=== PATIENT | female | born 1950 | race Caucasian/White ===

== ENCOUNTER 2019-08-06 07:43 | Day surgery (SDC) | payer MEDICARE, BC, OTHER ==
[2019-08-06] MEDS ORDERED: Dextrose 5%-Lactated Ringers 1,000 ML IV SCH (08:00)
[2019-08-06] MEDS ORDERED: fentaNYL 100 MCG/2 ML SDV ONE (09:06)
[2019-08-06] MEDS ORDERED: Propofol 200 MG/20 ML SDV ONE (09:06)
[2019-08-06] MEDS ORDERED: Midazolam 1 MG/ML 2 ML SDV ONE (09:06)
[2019-08-06 11:36] VITALS: BP 95/51; PULSE 55
--- NOTE | 2019-08-09 01:22 | OR ---
DATE OF PROCEDURE: 08/06/2019 SURGEON: Raza Wright MD PREOPERATIVE DIAGNOSIS: History of colon polyps. POSTOPERATIVE DIAGNOSIS: History of colon polyps with no recurrent polyp formation on today's exam. OPERATIVE PROCEDURE: Flexible colonoscopy. ANESTHESIA: IV sedation. INDICATION FOR PROCEDURE: A 69-year-old female presenting with history of colon polyps for followup screening colonoscopy. The plan is to proceed with colonoscopy with biopsies and polypectomy as indicated. Potential risks including bleeding and perforation were discussed, and the patient wishes to proceed. DETAILS OF PROCEDURE: The patient was taken to the operating room and placed in a left lateral decubitus position. IV sedation was administered, after which the initial digital rectal exam was performed and was unremarkable. Colonoscope was then passed into the rectum with retroflexion revealing uncomplicated hemorrhoidal columns. The scope was then eventually passed to the level of the cecum. The prep was fairly good with only a small amount of liquid stool being present to that level. No abnormalities were noted. Specifically, there were no areas of colitis or diverticular disease. No other signs of recurrent polyps or other signs of neoplasia. The scope was then withdrawn. The above findings reconfirmed. The procedure concluded. There were no other complications. The patient was taken to the recovery room in satisfactory condition. Due to the history of colon polyps, the next colonoscopy should be planned at 5 years from now. Raza Wright MD /[id number]
== END 2019-08-06 11:35 | disposition home or self-care (01) ==
LOC: JP.SDS 07:43
PROVIDERS: ATTEND Surgery
DX: Z12.11 Encounter for screening for malignant neoplasm of colon (principal); K64.9 Unspecified hemorrhoids; Z86.010 Personal history of colon polyps; Z88.0 Allergy status to penicillin
CPT/HCPCS: G0121; J2250; J2704; J3010; J7042

== ENCOUNTER 2021-01-29 16:48 | Inpatient (IN) | payer MEDICARE, BC, OTHER ==
[2021-01-29] MEDS ORDERED: Sodium Chloride 0.9% 10 ML Syringe FLUSH PRN (17:35)
[2021-01-29] MEDS ORDERED: Ondansetron 4 MG/2 ML SDV IVPUSH ONE (17:37)
[2021-01-29] MEDS ORDERED: fentaNYL 100 MCG/2 ML SDV IVPUSH ONE (17:37)
--- NOTE | 2021-01-29 17:39 | EDM.PDOC ---
<OfficerEyad - Last Filed: 01/29/21 17:37> ED HPI GENERAL MEDICAL PROBLEM - General Chief Complaint: Abdominal Pain Stated Complaint: FROM CLINIC ABD PAIN Time Seen by Provider: 01/29/21 17:32 Source of Information: Reports: Patient, Family, RN Notes Reviewed History Limitations: Reports: No Limitations - History of Present Illness INITIAL COMMENTS - FREE TEXT/NARRATIVE: 70-year-old female presents emergency department day complaint of abdominal pain, she states it started this morning about 10:00 pain will get very intense and relax she did have a noon meal however she had intense nausea and vomiting following the meal she will get waves of nausea and waves of pain rated 8 out of 10 at its peak. Does have a history of tubal ligation for abdominal surgery. No fever did have a bowel movement which appeared smaller than normal dark in color made no effect to the pain. 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 - Infectious Disease History Infectious Disease History: Reports: Chicken Pox, Measles, Mumps - Past Surgical History HEENT Surgical History: Reports: Oral Surgery GI Surgical History: Reports: Colonoscopy Female Surgical History: Reports: Breast Biopsy Social & Family History - Tobacco Use Tobacco Use Status *Q: Never Tobacco User - Caffeine Use Caffeine Use: Reports: Tea ED ROS GENERAL - Review of Systems Review Of Systems: See Below Constitutional: Denies: Fever HEENT: Reports: No Symptoms Respiratory: Reports: No Symptoms Cardiovascular: Reports: No Symptoms GI/Abdominal: Reports: Abdominal Pain, Flatus, Nausea, Vomiting. Denies: Constipation, Diarrhea : Reports: No Symptoms ED EXAM, GI/ABD - Physical Exam Exam: See Below Exam Limited By: No Limitations General Appearance: Alert, WD/WN, No Apparent Distress Respiratory/Chest: No Respiratory Distress, Lungs Clear, Normal Breath Sounds, No Accessory Muscle Use, Chest Non-Tender Cardiovascular: Regular Rate, Rhythm, No Murmur GI/Abdominal Exam: Normal Bowel Sounds, Soft, Tender (Right upper quadrant) Departure - Departure Disposition: Admitted As Inpatient 67 Clinical Impression: Partial obstruction of small intestine Ileitis, regional Qualifiers: Digestive disease complication type: with intestinal obstruction Qualified Code(s): K50.012 - Crohn's disease of small intestine with intestinal obstruction - Discharge Information Referrals: PCP,None [Primary Care Provider] - Forms: ED Department Discharge Sepsis Event Note (ED) - Evaluation Sepsis Screening Result: No Definite Risk <Barber Loving - Last Filed: 01/29/21 20:07> Course - Vital Signs Last Recorded V/S: Last Vital Signs Temp 36.7 C 01/29/21 17:30 Pulse 70 01/29/21 19:03 Resp 16 01/29/21 19:03 BP 125/75 01/29/21 19:03 Pulse Ox 96 01/29/21 19:03 - Orders/Labs/Meds Orders: Active Orders 24 hr Category Date Time Status Peripheral IV Care [RC] . DIRECTED Care 01/29/21 17:36 Active Iopamidol [Isovue-300 (61%)] Med 01/29/21 18:30 Active 86 ml IV . DIRECTED Sodium Chloride 0.9% [Normal Saline] 1,000 ml Med 01/29/21 17:45 Active IV ASDIRECTED Sodium Chloride 0.9% [Normal Saline] 70 ml Med 01/29/21 18:30 Active IV ASDIRECTED Sodium Chloride 0.9% [Saline Flush] Med 01/29/21 17:35 Active 10 ml FLUSH ASDIRECTED PRN Peripheral IV Insertion Adult [OM.PC] Urgent Oth 01/29/21 17:35 Ordered Medication Orders Sodium Chloride (Normal Saline) 1,000 mls @ 500 mls/hr IV ASDIRECTED [facility] Last Admin: 01/29/21 18:00 Dose: 500 mls/hr Documented by: ALIDA Sodium Chloride (Normal Saline) 70 mls @ 3.5 mls/sec IV ASDIRECTED [facility] Last Admin: 01/29/21 18:56 Dose: 3 mls/sec Documented by: MAGDALENA Iopamidol (Iopamidol 612 Mg/Ml 100 Ml Bottle) 86 ml IV . DIRECTED [facility] Last Admin: 01/29/21 18:55 Dose: 86 ml Documented by: MAGDALENA Sodium Chloride (Sodium Chloride 0.9% 10 Ml Syringe) 10 ml FLUSH ASDIRECTED PRN PRN Reason: Keep Vein Open Last Admin: 01/29/21 18:01 Dose: 10 ml Documented by: ALIDA Labs: Laboratory Tests 01/29/21 01/29/21 01/29/21 Range/Units 17:54 17:54 17:54 WBC 8.7 (4.5-11.0) K/uL RBC 4.42 (3.30-5.50) M/uL Hgb 14.0 (12.0-15.0) g/dL Hct 42.3 (36.0-48.0) % MCV 96 (80-98) fL MCH 32 H (27-31) pg MCHC 33 (32-36) % Plt Count 253 (150-400) K/uL Neut % (Auto) 87 H (36-66) % Lymph % (Auto) 8 L (24-44) % [place] % (Auto) 4 (2-6) % Eos % (Auto) 0 L (2-4) % Baso % (Auto) 0 (0-1) % Sodium 143 (140-148) mmol/L Potassium 3.3 L (3.6-5.2) mmol/L Chloride 102 (100-108) mmol/L Carbon Dioxide 33 H (21-32) mmol/L Anion Gap 11.3 (5.0-14.0) mmol/L BUN 17 (7-18) mg/dL Creatinine 0.7 (0.6-1.0) mg/dL Est Cr Clr Drug Dosing 54.48 mL/min Estimated GFR (MDRD) > 60 (>60) Glucose 119 H (74-106) mg/dL Lactic Acid 1.0 (0.4-2.0) mmol/L Calcium 9.8 (8.5-10.1) mg/dL Total Bilirubin 0.5 (0.2-1.0) mg/dL AST 24 (15-37) U/L ALT 22 (12-78) U/L Alkaline Phosphatase 69 (46-116) U/L Troponin I < 0.017 (0.000-0.056) ng/mL C-Reactive Protein (0.0-0.3) mg/dL Total Protein 7.0 (6.4-8.2) g/dL Albumin 3.9 (3.4-5.0) g/dL Globulin 3.1 (2.3-3.5) g/dL Albumin/Globulin Ratio 1.3 (1.2-2.2) Lipase 89 (73-393) U/L Urine Color (YELLOW) Urine Appearance (CLEAR) Urine pH (5.0-8.0) Ur Specific [place] (1.008-1.030) Urine Protein (NEGATIVE) mg/dL Urine Glucose (UA) (NEGATIVE) mg/dL Urine Ketones (NEGATIVE) mg/dL Urine Occult Blood (NEGATIVE) Urine Nitrite (NEGATIVE) Urine Bilirubin (NEGATIVE) Urine Urobilinogen (0.2-1.0) EU/dL Ur Leukocyte Esterase (NEGATIVE) Urine RBC (0-5) Urine WBC (0-5) Ur Epithelial Cells Amorphous Sediment Urine Bacteria Urine Mucus 01/29/21 01/29/21 Range/Units 19:15 19:16 WBC (4.5-11.0) K/uL RBC (3.30-5.50) M/uL Hgb (12.0-15.0) g/dL Hct (36.0-48.0) % MCV (80-98) fL MCH (27-31) pg MCHC (32-36) % Plt Count (150-400) K/uL Neut % (Auto) (36-66) % Lymph % (Auto) (24-44) % [place] % (Auto) (2-6) % Eos % (Auto) (2-4) % Baso % (Auto) (0-1) % Sodium (140-148) mmol/L Potassium (3.6-5.2) mmol/L Chloride (100-108) mmol/L Carbon Dioxide (21-32) mmol/L Anion Gap (5.0-14.0) mmol/L BUN (7-18) mg/dL Creatinine (0.6-1.0) mg/dL Est Cr Clr Drug Dosing mL/min Estimated GFR (MDRD) (>60) Glucose (74-106) mg/dL Lactic Acid (0.4-2.0) mmol/L Calcium (8.5-10.1) mg/dL Total Bilirubin (0.2-1.0) mg/dL AST (15-37) U/L ALT (12-78) U/L Alkaline Phosphatase (46-116) U/L Troponin I (0.000-0.056) ng/mL C-Reactive Protein 0.08 (0.0-0.3) mg/dL Total Protein (6.4-8.2) g/dL Albumin (3.4-5.0) g/dL Globulin (2.3-3.5) g/dL Albumin/Globulin Ratio (1.2-2.2) Lipase (73-393) U/L Urine Color Yellow (YELLOW) Urine Appearance Cloudy A (CLEAR) Urine pH >= 9.0 H (5.0-8.0) Ur Specific [place] 1.015 (1.008-1.030) Urine Protein 30 H (NEGATIVE) mg/dL Urine Glucose (UA) Negative (NEGATIVE) mg/dL Urine Ketones 40 H (NEGATIVE) mg/dL Urine Occult Blood Negative (NEGATIVE) Urine Nitrite Negative (NEGATIVE) Urine Bilirubin Negative (NEGATIVE) Urine Urobilinogen 0.2 (0.2-1.0) EU/dL Ur Leukocyte Esterase Negative (NEGATIVE) Urine RBC 0-5 (0-5) Urine WBC 0-5 (0-5) Ur Epithelial Cells Few Amorphous Sediment Packed Urine Bacteria Few Urine Mucus Few Meds: Medications Generic Name Dose Route Start Last Admin Trade Name Freq PRN Reason Stop Dose Admin Sodium Chloride 1,000 mls @ 500 mls/hr 01/29/21 17:45 01/29/21 18:00 Normal Saline IV 500 mls/hr ASDIRECTED WEN Administration Sodium Chloride 70 mls @ 3.5 mls/sec 01/29/21 18:30 01/29/21 18:56 Normal Saline IV 3 mls/sec ASDIRECTED WEN Administration Iopamidol 86 ml 01/29/21 18:30 01/29/21 18:55 Iopamidol 612 Mg/Ml 100 Ml Bottle IV 86 ml . DIRECTED WEN Administration Sodium Chloride 10 ml 01/29/21 17:35 01/29/21 18:01 Sodium Chloride 0.9% 10 Ml Syringe FLUSH 10 ml ASDIRECTED PRN Administration Keep Vein Open Discontinued Medications Generic Name Dose Route Start Last Admin Trade Name Freq PRN Reason Stop Dose Admin Fentanyl 50 mcg 01/29/21 17:37 01/29/21 17:59 Fentanyl 100 Mcg/2 Ml Sdv IVPUSH 01/29/21 17:38 50 mcg ONETIME ONE Administration Ondansetron HCl 4 mg 01/29/21 17:37 01/29/21 17:59 Ondansetron 4 Mg/2 Ml Sdv IVPUSH 01/29/21 17:38 4 mg ONETIME ONE Administration Sodium Chloride 10 ml 01/29/21 18:29 01/29/21 18:56 Sodium Chloride 0.9% 10 Ml Syringe FLUSH 01/29/21 18:30 10 ml ONETIME ONE Administration - Radiology Interpretation Free Text/Narrative:: He had the CT of the abdomen and pelvis with contrast demonstrating significant wall thickening of the ileum in the mid gut causing upstream obstruction. This is likely an acute ileitis either infectious or inflammatory nature causing an ileus. - Re-Assessments/Exams Free Text/Narrative Re-Assessment/Exam: 01/29/21 20:05 reviewed the labs and imaging of the patient including CT of the abdomen and pelvis with contrast. Appears that she has a partial small bowel obstruction due to acute inflammation in the mid gut involving the small bowel likely due to either infectious or inflammatory ileitis. The patient will need an NG tube placed with decompression of the stomach and bowel rest. I discussed the case with Dr. Simmons who is on-call for the [facility] to arrange for admission of the patient. I also discussed with the patient the findings on the CT and management including the possibility of a surgical consult with Dr. Wright. Both Dr. Simmons and the patient are in agreement with the plan and will arrange for admission. Departure - Departure Time of Disposition: 20:06 Sepsis Event Note (ED) - Focused Exam Vital Signs: Vital Signs Temp Pulse Resp BP Pulse Ox 01/29/21 19:03 70 16 125/75 96 01/29/21 17:30 36.7 C 73 18 138/77 96 01/29/21 17:05 36.7 C 73 18 138/77 96
[2021-01-29] MEDS ORDERED: Sodium Chloride 0.9% 1,000 ML IV SCH (17:45)
[2021-01-29] MEDS ORDERED: Sodium Chloride 0.9% 10 ML Syringe FLUSH ONE (18:29)
[2021-01-29] MEDS ORDERED: Iopamidol 612 MG/ML 100 ML Bottle IV SCH (18:30)
--- NOTE | 2021-01-29 19:46 | CRLCT ---
Examination: CT Abdomen/Pelvis Indication: Right upper quadrant pain Technique: Contiguous axial CT images of the abdomen and pelvis were acquired after uneventful administration of IV contrast. Coronal and sagittal reformations generated and reviewed. Comparison: None available Findings: The multiple proximal dilated small bowel loops which are dilated to the level of the mid abdomen where there is a short segment of small bowel with wall thickening and engorgement of the vasa recta (coronal images 21-24). Distal to that, the bowel is decompressed. No other areas of wall thickening. Normal appendix. Liver is normal in attenuation and contour. Hepatic vasculature is patent. Few subcentimeter low attenuation lesions in liver likely small cysts but technically indeterminate.. No intra or extrahepatic biliary dilation. Normal gallbladder. No hydronephrosis. Kidneys enhance symmetrically without focal lesions. The spleen, pancreas, and adrenal glands are unremarkable. A few prominent mesenteric lymph nodes are noted adjacent to the abnormal small bowel loop. No other adenopathy is noted in the abdomen or pelvis. Small amount of free fluid in the pelvis. Multi fibroid uterus. There is 2.2 x 1.6 cm hyperdense structure at the posterior lateral aspect of the uterus which could be an exophytic partially calcified fibroid or hemorrhagic cyst. No aortic aneurysm. Mesenteric vasculature patent. Iliac veins and IVC unremarkable. Limited images of the lung bases are clear. Minimal dependent atelectasis. Normal heart size. No acute or aggressive osseous abnormalities are noted. Impression: 1. Wall thickening of small bowel loop in the mid abdomen which is causing a relative ileus with dilated small bowel loops proximal to it. This could be due to a infectious enteritis or inflammatory bowel disease. 2. Fibroid uterus. Hyperdense structure at the posterior right margin of the uterus could be an exophytic partially calcified fibroid or possibly a cyst in the ovary. Recommend follow-up ultrasound in 6-8 weeks. Please note that all CT scans at this facility use dose modulation, iterative reconstruction, and/or weight-based dosing when appropriate to reduce radiation dose to as low as reasonably achievable. Dictated by Manpreet Cruz MD @ Jan 29 2021 7:29PM Signed by Dr. Manpreet Cruz @ Jan 29 2021 7:43PM
[2021-01-29] MEDS ORDERED: Lidocaine 2% Viscous Solution 15 ML Cup PO ONE (20:12)
[2021-01-29] MEDS ORDERED: Lidocaine 2% Jelly 10 ML Urojet MUCMEM ONE (20:13)
[2021-01-29] MEDS ORDERED: Morphine 2 MG/ML SYRINGE IVPUSH PRN (21:21)
[2021-01-29] MEDS ORDERED: Ketorolac 30 MG/ML SDV IVPUSH PRN (21:21)
[2021-01-29] MEDS ORDERED: Ondansetron 4 MG/2 ML SDV IV PRN (21:21)
[2021-01-29] MEDS ORDERED: Promethazine 12.5 MG in Sodium Chloride 0.9% 50 ML IV PRN (21:21)
[2021-01-29] MEDS ORDERED: Acetaminophen 650 MG Supp RECTAL PRN (21:32)
--- NOTE | 2021-01-29 21:38 | PCM.HP.2 ---
H&P History of Present Illness - General Date of Service: 01/29/21 Admit Problem/Dx: Admission Diagnosis/Problem Admission Diagnosis/Problem Small bowel obstruction Source of Information: Patient History Limitations: Reports: No Limitations - History of Present Illness Initial Comments - Free Text/Narative: Patient is a previously healthy 70yo female who presented with abdominal pain. It is colicky in nature and worsened after eating. This morning she threw up after lunch. She has had a tubal ligation, but no other abdominal surgeries and is otherwise healthy. In the ER she was found to have a partial SBO with dilated loops of bowel. She was given fentanyl for pain in the ER and has been doing fine since then and her pain improved with an NG tube. Nausea has been co ntrolled with zofran. Pain was 8/10 but is now resolved Onset of Symptoms: Reports: Today, Sudden Duration of Symptoms: Reports: Hour(s): Location: Reports: Abdomen Quality: Reports: Sharp (colicky) Severity: Severe Improves with: Reports: Medication Worsens with: Reports: Eating Associated Symptoms: Reports: Nausea/Vomiting - Related Data Allergies/Adverse Reactions: Allergies Allergy/AdvReac Type Severity Reaction Status Date / Time doxycycline Allergy Other Verified 01/29/21 17:25 Penicillins Allergy Airway Verified 01/29/21 17:25 Tightness Home Medications: Home Meds NK [No Known Home Meds] 05/09/14 [History] Past Medical History HEENT History: Reports: Impaired Vision Gastrointestinal History: Reports: Colon Polyp Genitourinary History: Reports: None 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 Denies: Fever, Chills HEENT: Reports: No Symptoms Pulmonary: Reports: No Symptoms Gastrointestinal: Reports: Abdominal Pain, Distension, Nausea, Vomiting Genitourinary: Reports: No Symptoms Musculoskeletal: Reports: No Symptoms Skin: Reports: No Symptoms Psychiatric: Reports: No Symptoms Neurological: Reports: No Symptoms Hematologic/Lymphatic: Reports: No Symptoms Immunologic: Reports: No Symptoms Exam - Exam Exam: See Below - Vital Signs Vital Signs: Last Vital Signs Temp 36.7 C 01/29/21 17:30 Pulse 73 01/29/21 20:33 Resp 18 01/29/21 20:33 BP 119/70 01/29/21 20:33 Pulse Ox 94 L 01/29/21 20:33 Weight: 57.153 kg - Exam General: Alert, Oriented, 4 HEENT: PERRLA, Hearing Intact, Mucosa Moist & [place], Nares Patent, Normal Nasal Septum, Posterior Pharynx Clear, Conjunctiva Clear, EOMI, EACs Clear, TMs Clear Neck: Supple, Trachea Midline, 2 Lungs: Clear to Auscultation, Normal Respiratory Effort Cardiovascular: Regular Rate, Regular Rhythm GI/Abdominal Exam: Soft, Tender, Abnormal Bowel Sounds. No: Normal Bowel Sounds (Female) Exam: Deferred Rectal (Female) Exam: Deferred Back Exam: Normal Inspection, Full Range of Motion, NT Extremities: Normal Inspection, Normal Range of Motion, Non-Tender, No Pedal Edema, Normal Capillary Refill Skin: Warm, Dry, Intact Neurological: Cranial Nerves Intact, Reflexes Equal Bilateral Neuro Extensive - Mental Status: Alert, Oriented x3, Normal Mood/Affect, Normal Cognition Neuro Extensive - Motor, Sensory, Reflexes: CN II-XII Intact, Normal Gait, Norm al Reflexes Psychiatric: Alert, Normal Affect, Normal Mood - Patient Data Lab Results Last 24 hrs: Laboratory Results - last 24 hr 01/29/21 01/29/21 01/29/21 Range/Units 17:54 17:54 17:54 WBC 8.7 (4.5-11.0) K/uL RBC 4.42 (3.30-5.50) M/uL Hgb 14.0 (12.0-15.0) g/dL Hct 42.3 (36.0-48.0) % MCV 96 (80-98) fL MCH 32 H (27-31) pg MCHC 33 (32-36) % Plt Count 253 (150-400) K/uL Neut % (Auto) 87 H (36-66) % Lymph % (Auto) 8 L (24-44) % [place] % (Auto) 4 (2-6) % Eos % (Auto) 0 L (2-4) % Baso % (Auto) 0 (0-1) % Sodium 143 (140-148) mmol/L Potassium 3.3 L (3.6-5.2) mmol/L Chloride 102 (100-108) mmol/L Carbon Dioxide 33 H (21-32) mmol/L Anion Gap 11.3 (5.0-14.0) mmol/L BUN 17 (7-18) mg/dL Creatinine 0.7 (0.6-1.0) mg/dL Est Cr Clr Drug Dosing 54.48 mL/min Estimated GFR (MDRD) > 60 (>60) Glucose 119 H (74-106) mg/dL Lactic Acid 1.0 (0.4-2.0) mmol/L Calcium 9.8 (8.5-10.1) mg/dL Total Bilirubin 0.5 (0.2-1.0) mg/dL AST 24 (15-37) U/L ALT 22 (12-78) U/L Alkaline Phosphatase 69 (46-116) U/L Troponin I < 0.017 (0.000-0.056) ng/mL C-Reactive Protein (0.0-0.3) mg/dL Total Protein 7.0 (6.4-8.2) g/dL Albumin 3.9 (3.4-5.0) g/dL Globulin 3.1 (2.3-3.5) g/dL Albumin/Globulin Ratio 1.3 (1.2-2.2) Lipase 89 (73-393) U/L Urine Color (YELLOW) Urine Appearance (CLEAR) Urine pH (5.0-8.0) Ur Specific [place] (1.008-1.030) Urine Protein (NEGATIVE) mg/dL Urine Glucose (UA) (NEGATIVE) mg/dL Urine Ketones (NEGATIVE) mg/dL Urine Occult Blood (NEGATIVE) Urine Nitrite (NEGATIVE) Urine Bilirubin (NEGATIVE) Urine Urobilinogen (0.2-1.0) EU/dL Ur Leukocyte Esterase (NEGATIVE) Urine RBC (0-5) Urine WBC (0-5) Ur Epithelial Cells Amorphous Sediment Urine Bacteria Urine Mucus 01/29/21 01/29/21 Range/Units 19:15 19:16 WBC (4.5-11.0) K/uL RBC (3.30-5.50) M/uL Hgb (12.0-15.0) g/dL Hct (36.0-48.0) % MCV (80-98) fL MCH (27-31) pg MCHC (32-36) % Plt Count (150-400) K/uL Neut % (Auto) (36-66) % Lymph % (Auto) (24-44) % [place] % (Auto) (2-6) % Eos % (Auto) (2-4) % Baso % (Auto) (0-1) % Sodium (140-148) mmol/L Potassium (3.6-5.2) mmol/L Chloride (100-108) mmol/L Carbon Dioxide (21-32) mmol/L Anion Gap (5.0-14.0) mmol/L BUN (7-18) mg/dL Creatinine (0.6-1.0) mg/dL Est Cr Clr Drug Dosing mL/min Estimated GFR (MDRD) (>60) Glucose (74-106) mg/dL Lactic Acid (0.4-2.0) mmol/L Calcium (8.5-10.1) mg/dL Total Bilirubin (0.2-1.0) mg/dL AST (15-37) U/L ALT (12-78) U/L Alkaline Phosphatase (46-116) U/L Troponin I (0.000-0.056) ng/mL C-Reactive Protein 0.08 (0.0-0.3) mg/dL Total Protein (6.4-8.2) g/dL Albumin (3.4-5.0) g/dL Globulin (2.3-3.5) g/dL Albumin/Globulin Ratio (1.2-2.2) Lipase (73-393) U/L Urine Color Yellow (YELLOW) Urine Appearance Cloudy A (CLEAR) Urine pH >= 9.0 H (5.0-8.0) Ur Specific [place] 1.015 (1.008-1.030) Urine Protein 30 H (NEGATIVE) mg/dL Urine Glucose (UA) Negative (NEGATIVE) mg/dL Urine Ketones 40 H (NEGATIVE) mg/dL Urine Occult Blood Negative (NEGATIVE) Urine Nitrite Negative (NEGATIVE) Urine Bilirubin Negative (NEGATIVE) Urine Urobilinogen 0.2 (0.2-1.0) EU/dL Ur Leukocyte Esterase Negative (NEGATIVE) Urine RBC 0-5 (0-5) Urine WBC 0-5 (0-5) Ur Epithelial Cells Few Amorphous Sediment Packed Urine Bacteria Few Urine Mucus Few Result Diagrams: 01/29/21 17:54 01/29/21 17:54 Sepsis Event Note - Evaluation Sepsis Screening Result: No Definite Risk - Focused Exam Vital Signs: Vital Signs Temp Pulse Resp BP Pulse Ox 01/29/21 20:33 73 18 119/70 94 L 01/29/21 20:03 68 16 123/64 95 01/29/21 19:33 68 122/65 01/29/21 19:03 70 16 125/75 96 01/29/21 17:30 36.7 C 73 18 138/77 96 01/29/21 17:05 36.7 C 73 18 138/77 96 - Problem List (1) Partial obstruction of small intestine SNOMED Code(s): 056664811 ICD Code: K56.600 - PARTIAL INTESTINAL OBSTRUCTION, UNSPECIFIED TO CAUSE Status: Acute Current Visit: Yes Onset Date: ~01/29/21 Problem Details: NG tube placed, IV maintanence fluids given, pain is controlled in ED, but toradol and tylenol are preferred over opiates. Opiates should not be given unless absolutely necessary due to risk of worsening SBO. Patient should be on bowel rest for 48hrs, unless there is a status change that warrants immediate surgical intervention. Increased pain, change in lab values, or worsening distention despite NG suction. Patient should be NPO for 48hrs Problem List Initiated/Reviewed/Updated: Yes Orders Last 24hrs: Active Orders 24 hr Category Date Time Status Patient Status [ADT] Routine ADT 01/29/21 21:19 Ordered Ambulate [RC] QID Care 01/29/21 21:21 Ordered Oxygen Therapy [RC] PRN Care 01/29/21 21:19 Ordered Oxygen Therapy [RC] PRN Care 01/29/21 21:21 Ordered Peripheral IV Care [RC] . DIRECTED Care 01/29/21 17:36 Active Pulse Oximetry [RC] CONTINUOUS Care 01/29/21 21:21 Ordered VTE/DVT Education [RC] Per Unit Routine Care 01/29/21 21:19 Ordered VTE/DVT Education [RC] Per Unit Routine Care 01/29/21 21:21 Ordered Vital Signs [RC] Q4H Care 01/29/21 21:19 Ordered Vital Signs [RC] Q4H Care 01/29/21 21:21 Ordered Nothing per Oral Now Diet [DIET] Diet 01/29/21 Breakfast Ordered Chest 1V Frontal [CR] Stat Exams 01/29/21 20:11 Ordered C-REACTIVE PROTEIN [CHEM] AM Lab 01/30/21 05:11 Ordered CBC WITH AUTO DIFF [HEME] AM Lab 01/30/21 05:11 Ordered COMPREHENSIVE METABOLIC PN,CMP [CHEM] AM Lab 01/30/21 05:11 Ordered LACTIC ACID [CHEM] AM Lab 01/30/21 05:11 Ordered Acetaminophen [Tylenol] Med 01/29/21 21:32 Ordered 650 mg RECTAL Q6H PRN D5 1/2 NS w/ 20 mEq/L KCl 1,000 ml Med 01/29/21 20:45 Active IV ASDIRECTED Iopamidol [Isovue-300 (61%)] Med 01/29/21 18:30 Active 86 ml IV . DIRECTED Ketorolac [Toradol] Med 01/29/21 21:21 Ordered 30 mg IVPUSH Q6H PRN Morphine Med 01/29/21 21:21 Ordered 2 mg IVPUSH Q2H PRN Ondansetron [Zofran] Med 01/29/21 21:21 Ordered 4 mg IV Q4H PRN Promethazine [Phenergan] 12.5 mg Med 01/29/21 21:21 Ordered Sodium Chloride 0.9% [Normal Saline] 50 ml IV Q6H Sodium Chloride 0.9% [Normal Saline] 1,000 ml Med 01/29/21 17:45 Active IV ASDIRECTED Sodium Chloride 0.9% [Normal Saline] 70 ml Med 01/29/21 18:30 Active IV ASDIRECTED Sodium Chloride 0.9% [Saline Flush] Med 01/29/21 17:35 Active 10 ml FLUSH ASDIRECTED PRN Nasogastric Orogastric Tube Insertion [OM.PC] Routine Oth 01/29/21 20:11 Order ed Peripheral IV Insertion Adult [OM.PC] Urgent Oth 01/29/21 17:35 Ordered Sequential Compression Device [OM.PC] Per Unit Routine Oth 01/29/21 21:22 Ordered Resuscitation Status Routine Resus Stat 01/29/21 21:19 Ordered Medication Orders Acetaminophen (Acetaminophen 650 Mg Supp) 650 mg RECTAL Q6H PRN PRN Reason: Pain Sodium Chloride (Normal Saline) 1,000 mls @ 500 mls/hr IV ASDIRECTED [facility] Last Admin: 01/29/21 18:00 Dose: 500 mls/hr Documented by: ALIDA Sodium Chloride (Normal Saline) 70 mls @ 3.5 mls/sec IV ASDIRECTED [facility] Last Admin: 01/29/21 18:56 Dose: 3 mls/sec Documented by: MAGDALENA Potassium Chloride/Dextrose/Sod Cl (D5 1/2 Ns W/ 20 Meq/L Kcl) 1,000 mls @ 125 mls/hr IV ASDIRECTED [facility] Promethazine HCl 12.5 mg/ (Sodium Chloride) 50.5 mls @ 200 mls/hr IV Q6H PRN PRN Reason: Nausea/Vomiting Iopamidol (Iopamidol 612 Mg/Ml 100 Ml Bottle) 86 ml IV . DIRECTED [facility] Last Admin: 01/29/21 18:55 Dose: 86 ml Documented by: MAGDALENA Ketorolac Tromethamine (Ketorolac 30 Mg/Ml Sdv) 30 mg IVPUSH Q6H PRN PRN Reason: Pain (moderate 4-6) Morphine Sulfate (Morphine 2 Mg/Ml Syringe) 2 mg IVPUSH Q2H PRN PRN Reason: Other Ondansetron HCl (Ondansetron 4 Mg/2 Ml Sdv) 4 mg IV Q4H PRN PRN Reason: Nausea/Vomiting Sodium Chloride (Sodium Chloride 0.9% 10 Ml Syringe) 10 ml FLUSH ASDIRECTED PRN PRN Reason: Keep Vein Open Last Admin: 01/29/21 18:01 Dose: 10 ml Documented by: ALIDA - Mortality Measure Prognosis:: Good
[2021-01-29] MEDS: D5 1/2 NS w/ 20 mEq/L KCl 1,000 ML IV SCH (21:56)
[2021-01-30] MEDS: D5 1/2 NS w/ 20 mEq/L KCl 1,000 ML IV SCH (06:25)
--- NOTE | 2021-01-30 11:17 | PCM.PN ---
- General Info Date of Service: 01/30/21 Subjective Update: No acute events overnight since admission. She does not have any abdominal pain or nausea today. NG tube is something small quantities of a greenish-brown flui d. No fevers. No bowel movement since admission. Procalcitonin level was undetectable. White count remains normal. Functional Status: Reports: Pain Controlled - Review of Systems General: Denies: Fever Gastrointestinal: Denies: Abdominal Pain, Nausea - Patient Data Vitals - Most Recent: Last Vital Signs Temp 36.3 C 01/30/21 11:00 Pulse 64 01/30/21 11:00 Resp 16 01/30/21 11:00 BP 119/69 01/30/21 11:00 Pulse Ox 97 01/30/21 11:00 Weight - Most Recent: 54.613 kg I&O - Last 24 Hours: Intake & Output 01/29/21 01/30/21 01/30/21 22:59 06:59 14:59 Intake Total 1010 Output Total 450 Balance 560 Lab Results Last 24 Hours: Laboratory Results - last 24 hr 01/29/21 01/29/21 01/29/21 Range/Units 17:54 17:54 17:54 WBC 8.7 (4.5-11.0) K/uL RBC 4.42 (3.30-5.50) M/uL Hgb 14.0 (12.0-15.0) g/dL Hct 42.3 (36.0-48.0) % MCV 96 (80-98) fL MCH 32 H (27-31) pg MCHC 33 (32-36) % Plt Count 253 (150-400) K/uL Neut % (Auto) 87 H (36-66) % Lymph % (Auto) 8 L (24-44) % Pratt % (Auto) 4 (2-6) % Eos % (Auto) 0 L (2-4) % Baso % (Auto) 0 (0-1) % Sodium 143 (140-148) mmol/L Potassium 3.3 L (3.6-5.2) mmol/L Chloride 102 (100-108) mmol/L Carbon Dioxide 33 H (21-32) mmol/L Anion Gap 11.3 (5.0-14.0) mmol/L BUN 17 (7-18) mg/dL Creatinine 0.7 (0.6-1.0) mg/dL Est Cr Clr Drug Dosing 54.48 mL/min Estimated GFR (MDRD) > 60 (>60) Glucose 119 H (74-106) mg/dL Lactic Acid 1.0 (0.4-2.0) mmol/L Calcium 9.8 (8.5-10.1) mg/dL Total Bilirubin 0.5 (0.2-1.0) mg/dL AST 24 (15-37) U/L ALT 22 (12-78) U/L Alkaline Phosphatase 69 (46-116) U/L Troponin I < 0.017 (0.000-0.056) ng/mL C-Reactive Protein (0.0-0.3) mg/dL Total Protein 7.0 (6.4-8.2) g/dL Albumin 3.9 (3.4-5.0) g/dL Globulin 3.1 (2.3-3.5) g/dL Albumin/Globulin Ratio 1.3 (1.2-2.2) Lipase 89 (73-393) U/L Urine Color (YELLOW) Urine Appearance (CLEAR) Urine pH (5.0-8.0) Ur Specific [place] (1.008-1.030) Urine Protein (NEGATIVE) mg/dL Urine Glucose (UA) (NEGATIVE) mg/dL Urine Ketones (NEGATIVE) mg/dL Urine Occult Blood (NEGATIVE) Urine Nitrite (NEGATIVE) Urine Bilirubin (NEGATIVE) Urine Urobilinogen (0.2-1.0) EU/dL Ur Leukocyte Esterase (NEGATIVE) Urine RBC (0-5) Urine WBC (0-5) Ur Epithelial Cells Amorphous Sediment Urine Bacteria Urine Mucus 01/29/21 01/29/21 01/30/21 Range/Units 19:15 19:16 04:30 WBC (4.5-11.0) K/uL RBC (3.30-5.50) M/uL Hgb (12.0-15.0) g/dL Hct (36.0-48.0) % MCV (80-98) fL MCH (27-31) pg MCHC (32-36) % Plt Count (150-400) K/uL Neut % (Auto) (36-66) % Lymph % (Auto) (24-44) % Pratt % (Auto) (2-6) % Eos % (Auto) (2-4) % Baso % (Auto) (0-1) % Sodium (140-148) mmol/L Potassium (3.6-5.2) mmol/L Chloride (100-108) mmol/L Carbon Dioxide (21-32) mmol/L Anion Gap (5.0-14.0) mmol/L BUN (7-18) mg/dL Creatinine (0.6-1.0) mg/dL Est Cr Clr Drug Dosing mL/min Estimated GFR (MDRD) (>60) Glucose (74-106) mg/dL Lactic Acid 0.7 (0.4-2.0) mmol/L Calcium (8.5-10.1) mg/dL Total Bilirubin (0.2-1.0) mg/dL AST (15-37) U/L ALT (12-78) U/L Alkaline Phosphatase (46-116) U/L Troponin I (0.000-0.056) ng/mL C-Reactive Protein 0.08 (0.0-0.3) mg/dL Total Protein (6.4-8.2) g/dL Albumin (3.4-5.0) g/dL Globulin (2.3-3.5) g/dL Albumin/Globulin Ratio (1.2-2.2) Lipase (73-393) U/L Urine Color Yellow (YELLOW) Urine Appearance Cloudy A (CLEAR) Urine pH >= 9.0 H (5.0-8.0) Ur Specific [place] 1.015 (1.008-1.030) Urine Protein 30 H (NEGATIVE) mg/dL Urine Glucose (UA) Negative (NEGATIVE) mg/dL Urine Ketones 40 H (NEGATIVE) mg/dL Urine Occult Blood Negative (NEGATIVE) Urine Nitrite Negative (NEGATIVE) Urine Bilirubin Negative (NEGATIVE) Urine Urobilinogen 0.2 (0.2-1.0) EU/dL Ur Leukocyte Esterase Negative (NEGATIVE) Urine RBC 0-5 (0-5) Urine WBC 0-5 (0-5) Ur Epithelial Cells Few Amorphous Sediment Packed Urine Bacteria Few Urine Mucus Few 01/30/21 01/30/21 Range/Units 04:35 04:35 WBC 6.0 (4.5-11.0) K/uL RBC 3.80 (3.30-5.50) M/uL Hgb 11.8 L D (12.0-15.0) g/dL Hct 37.4 (36.0-48.0) % MCV 98 (80-98) fL MCH 31 (27-31) pg MCHC 32 (32-36) % Plt Count 205 (150-400) K/uL Neut % (Auto) 72 H (36-66) % Lymph % (Auto) 18 L (24-44) % Pratt % (Auto) 10 H (2-6) % Eos % (Auto) 1 L (2-4) % Baso % (Auto) 0 (0-1) % Sodium 142 (140-148) mmol/L Potassium 3.5 L (3.6-5.2) mmol/L Chloride 106 (100-108) mmol/L Carbon Dioxide 30 (21-32) mmol/L Anion Gap 9.5 (5.0-14.0) mmol/L BUN 12 (7-18) mg/dL Creatinine 0.6 (0.6-1.0) mg/dL Est Cr Clr Drug Dosing 63.56 mL/min Estimated GFR (MDRD) > 60 (>60) Glucose 151 H (74-106) mg/dL Lactic Acid (0.4-2.0) mmol/L Calcium 8.2 L D (8.5-10.1) mg/dL Total Bilirubin 0.5 (0.2-1.0) mg/dL AST 15 (15-37) U/L ALT 15 (12-78) U/L Alkaline Phosphatase 51 (46-116) U/L Troponin I (0.000-0.056) ng/mL C-Reactive Protein 0.14 (0.0-0.3) mg/dL Total Protein 5.3 L (6.4-8.2) g/dL Albumin 2.8 L (3.4-5.0) g/dL Globulin 2.5 (2.3-3.5) g/dL Albumin/Globulin Ratio 1.1 L (1.2-2.2) Lipase (73-393) U/L Urine Color (YELLOW) Urine Appearance (CLEAR) Urine pH (5.0-8.0) Ur Specific [place] (1.008-1.030) Urine Protein (NEGATIVE) mg/dL Urine Glucose (UA) (NEGATIVE) mg/dL Urine Ketones (NEGATIVE) mg/dL Urine Occult Blood (NEGATIVE) Urine Nitrite (NEGATIVE) Urine Bilirubin (NEGATIVE) Urine Urobilinogen (0.2-1.0) EU/dL Ur Leukocyte Esterase (NEGATIVE) Urine RBC (0-5) Urine WBC (0-5) Ur Epithelial Cells Amorphous Sediment Urine Bacteria Urine Mucus Med Orders - Current: Current Medications Acetaminophen (Acetaminophen 650 Mg Supp) 650 mg RECTAL Q6H PRN PRN Reason: Pain Promethazine HCl 12.5 mg/ (Sodium Chloride) 50.5 mls @ 200 mls/hr IV Q6H PRN PRN Reason: Nausea/Vomiting Potassium Chloride 20 meq/Lidocaine HCl 2 ml/ Sodium Chloride 112 mls @ 50 mls/hr IV Q2H [facility] Stop: 01/30/21 13:59 Iopamidol (Iopamidol 612 Mg/Ml 100 Ml Bottle) 86 ml IV . DIRECTED [facility] Last Admin: 01/29/21 18:55 Dose: 86 ml Documented by: Ketorolac Tromethamine (Ketorolac 30 Mg/Ml Sdv) 30 mg IVPUSH Q6H PRN PRN Reason: Pain (moderate 4-6) Morphine Sulfate (Morphine 2 Mg/Ml Syringe) 2 mg IVPUSH Q2H PRN PRN Reason: Other Ondansetron HCl (Ondansetron 4 Mg/2 Ml Sdv) 4 mg IV Q4H PRN PRN Reason: Nausea/Vomiting Sodium Chloride (Sodium Chloride 0.9% 10 Ml Syringe) 10 ml FLUSH ASDIRECTED PRN PRN Reason: Keep Vein Open Last Admin: 01/29/21 18:01 Dose: 10 ml Documented by: Discontinued Medications Fentanyl (Fentanyl 100 Mcg/2 Ml Sdv) 50 mcg IVPUSH ONETIME ONE Stop: 01/29/21 17:38 Last Admin: 01/29/21 17:59 Dose: 50 mcg Documented by: Sodium Chloride (Normal Saline) 1,000 mls @ 500 mls/hr IV ASDIRECTED [facility] Last Admin: 01/29/21 18:00 Dose: 500 mls/hr Documented by: Sodium Chloride (Normal Saline) 70 mls @ 3.5 mls/sec IV ASDIRECTED [facility] Last Admin: 01/29/21 18:56 Dose: 3 mls/sec Documented by: Potassium Chloride/Dextrose/Sod Cl (D5 1/2 Ns W/ 20 Meq/L Kcl) 1,000 mls @ 125 mls/hr IV ASDIRECTED [facility] Last Admin: 01/30/21 06:25 Dose: 125 mls/hr Documented by: Lidocaine HCl (Lidocaine 2% Viscous Solution 15 Ml Cup) 15 ml PO ONETIME ONE Stop: 01/29/21 20:13 Lidocaine HCl (Lidocaine 2% Jelly 10 Ml Urojet) 10 ml MUCMEM ONETIME ONE Stop: 01/29/21 20:14 Last Admin: 01/29/21 20:38 Dose: 10 ml Documented by: Ondansetron HCl (Ondansetron 4 Mg/2 Ml Sdv) 4 mg IVPUSH ONETIME ONE Stop: 01/29/21 17:38 Last Admin: 01/29/21 17:59 Dose: 4 mg Documented by: Sodium Chloride (Sodium Chloride 0.9% 10 Ml Syringe) 10 ml FLUSH ONETIME ONE Stop: 01/29/21 18:30 Last Admin: 01/29/21 18:56 Dose: 10 ml Documented by: - Exam Quality Assessment: No: Supplemental Oxygen General: Alert, Oriented, Cooperative, No Acute Distress HEENT: Other (NG tube in place) Lungs: Normal Respiratory Effort GI/Abdominal Exam: Normal Bowel Sounds, Soft, No Distention Extremities: No Pedal Edema Skin: Warm, Dry Psy/Mental Status: Alert, Normal Affect - Patient Data Lab Results Last 24 hrs: Laboratory Results - last 24 hr 01/29/21 01/29/21 01/29/21 Range/Units 17:54 17:54 17:54 WBC 8.7 (4.5-11.0) K/uL RBC 4.42 (3.30-5.50) M/uL Hgb 14.0 (12.0-15.0) g/dL Hct 42.3 (36.0-48.0) % MCV 96 (80-98) fL MCH 32 H (27-31) pg MCHC 33 (32-36) % Plt Count 253 (150-400) K/uL Neut % (Auto) 87 H (36-66) % Lymph % (Auto) 8 L (24-44) % Pratt % (Auto) 4 (2-6) % Eos % (Auto) 0 L (2-4) % Baso % (Auto) 0 (0-1) % Sodium 143 (140-148) mmol/L Potassium 3.3 L (3.6-5.2) mmol/L Chloride 102 (100-108) mmol/L Carbon Dioxide 33 H (21-32) mmol/L Anion Gap 11.3 (5.0-14.0) mmol/L BUN 17 (7-18) mg/dL Creatinine 0.7 (0.6-1.0) mg/dL Est Cr Clr Drug Dosing 54.48 mL/min Estimated GFR (MDRD) > 60 (>60) Glucose 119 H (74-106) mg/dL Lactic Acid 1.0 (0.4-2.0) mmol/L Calcium 9.8 (8.5-10.1) mg/dL Total Bilirubin 0.5 (0.2-1.0) mg/dL AST 24 (15-37) U/L ALT 22 (12-78) U/L Alkaline Phosphatase 69 (46-116) U/L Troponin I < 0.017 (0.000-0.056) ng/mL C-Reactive Protein (0.0-0.3) mg/dL Total Protein 7.0 (6.4-8.2) g/dL Albumin 3.9 (3.4-5.0) g/dL Globulin 3.1 (2.3-3.5) g/dL Albumin/Globulin Ratio 1.3 (1.2-2.2) Lipase 89 (73-393) U/L Urine Color (YELLOW) Urine Appearance (CLEAR) Urine pH (5.0-8.0) Ur Specific [place] (1.008-1.030) Urine Protein (NEGATIVE) mg/dL Urine Glucose (UA) (NEGATIVE) mg/dL Urine Ketones (NEGATIVE) mg/dL Urine Occult Blood (NEGATIVE) Urine Nitrite (NEGATIVE) Urine Bilirubin (NEGATIVE) Urine Urobilinogen (0.2-1.0) EU/dL Ur Leukocyte Esterase (NEGATIVE) Urine RBC (0-5) Urine WBC (0-5) Ur Epithelial Cells Amorphous Sediment Urine Bacteria Urine Mucus 01/29/21 01/29/21 01/30/21 Range/Units 19:15 19:16 04:30 WBC (4.5-11.0) K/uL RBC (3.30-5.50) M/uL Hgb (12.0-15.0) g/dL Hct (36.0-48.0) % MCV (80-98) fL MCH (27-31) pg MCHC (32-36) % Plt Count (150-400) K/uL Neut % (Auto) (36-66) % Lymph % (Auto) (24-44) % Pratt % (Auto) (2-6) % Eos % (Auto) (2-4) % Baso % (Auto) (0-1) % Sodium (140-148) mmol/L Potassium (3.6-5.2) mmol/L Chloride (100-108) mmol/L Carbon Dioxide (21-32) mmol/L Anion Gap (5.0-14.0) mmol/L BUN (7-18) mg/dL Creatinine (0.6-1.0) mg/dL Est Cr Clr Drug Dosing mL/min Estimated GFR (MDRD) (>60) Glucose (74-106) mg/dL Lactic Acid 0.7 (0.4-2.0) mmol/L Calcium (8.5-10.1) mg/dL Total Bilirubin (0.2-1.0) mg/dL AST (15-37) U/L ALT (12-78) U/L Alkaline Phosphatase (46-116) U/L Troponin I (0.000-0.056) ng/mL C-Reactive Protein 0.08 (0.0-0.3) mg/dL Total Protein (6.4-8.2) g/dL Albumin (3.4-5.0) g/dL Globulin (2.3-3.5) g/dL Albumin/Globulin Ratio (1.2-2.2) Lipase (73-393) U/L Urine Color Yellow (YELLOW) Urine Appearance Cloudy A (CLEAR) Urine pH >= 9.0 H (5.0-8.0) Ur Specific [place] 1.015 (1.008-1.030) Urine Protein 30 H (NEGATIVE) mg/dL Urine Glucose (UA) Negative (NEGATIVE) mg/dL Urine Ketones 40 H (NEGATIVE) mg/dL Urine Occult Blood Negative (NEGATIVE) Urine Nitrite Negative (NEGATIVE) Urine Bilirubin Negative (NEGATIVE) Urine Urobilinogen 0.2 (0.2-1.0) EU/dL Ur Leukocyte Esterase Negative (NEGATIVE) Urine RBC 0-5 (0-5) Urine WBC 0-5 (0-5) Ur Epithelial Cells Few Amorphous Sediment Packed Urine Bacteria Few Urine Mucus Few 01/30/21 01/30/21 Range/Units 04:35 04:35 WBC 6.0 (4.5-11.0) K/uL RBC 3.80 (3.30-5.50) M/uL Hgb 11.8 L D (12.0-15.0) g/dL Hct 37.4 (36.0-48.0) % MCV 98 (80-98) fL MCH 31 (27-31) pg MCHC 32 (32-36) % Plt Count 205 (150-400) K/uL Neut % (Auto) 72 H (36-66) % Lymph % (Auto) 18 L (24-44) % Pratt % (Auto) 10 H (2-6) % Eos % (Auto) 1 L (2-4) % Baso % (Auto) 0 (0-1) % Sodium 142 (140-148) mmol/L Potassium 3.5 L (3.6-5.2) mmol/L Chloride 106 (100-108) mmol/L Carbon Dioxide 30 (21-32) mmol/L Anion Gap 9.5 (5.0-14.0) mmol/L BUN 12 (7-18) mg/dL Creatinine 0.6 (0.6-1.0) mg/dL Est Cr Clr Drug Dosing 63.56 mL/min Estimated GFR (MDRD) > 60 (>60) Glucose 151 H (74-106) mg/dL Lactic Acid (0.4-2.0) mmol/L Calcium 8.2 L D (8.5-10.1) mg/dL Total Bilirubin 0.5 (0.2-1.0) mg/dL AST 15 (15-37) U/L ALT 15 (12-78) U/L Alkaline Phosphatase 51 (46-116) U/L Troponin I (0.000-0.056) ng/mL C-Reactive Protein 0.14 (0.0-0.3) mg/dL Total Protein 5.3 L (6.4-8.2) g/dL Albumin 2.8 L (3.4-5.0) g/dL Globulin 2.5 (2.3-3.5) g/dL Albumin/Globulin Ratio 1.1 L (1.2-2.2) Lipase (73-393) U/L Urine Color (YELLOW) Urine Appearance (CLEAR) Urine pH (5.0-8.0) Ur Specific [place] (1.008-1.030) Urine Protein (NEGATIVE) mg/dL Urine Glucose (UA) (NEGATIVE) mg/dL Urine Ketones (NEGATIVE) mg/dL Urine Occult Blood (NEGATIVE) Urine Nitrite (NEGATIVE) Urine Bilirubin (NEGATIVE) Urine Urobilinogen (0.2-1.0) EU/dL Ur Leukocyte Esterase (NEGATIVE) Urine RBC (0-5) Urine WBC (0-5) Ur Epithelial Cells Amorphous Sediment Urine Bacteria Urine Mucus Result Diagrams: 01/30/21 04:35 01/30/21 04:35 Sepsis Event Note - Evaluation Sepsis Screening Result: No Definite Risk - Focused Exam Vital Signs: Vital Signs Temp Pulse Resp BP Pulse Ox 01/30/21 11:00 36.3 C 64 16 119/69 97 01/30/21 07:26 99 01/30/21 07:00 36.0 C L 66 16 96 01/30/21 02:47 36.2 C 62 15 96/57 L 99 01/30/21 01:38 98 01/29/21 23:30 91 L - Problem List Review Problem List Initiated/Reviewed/Updated: Yes - My Orders Last 24 Hours: My Active Orders 01/30/21 10:00 Potassium Chloride 20 meq Lidocaine 1% [Xylocaine 1%] 2 ml Sodium Chloride 0.9% [Normal Saline] 100 ml IV Q2H 01/30/21 11:15 PROCALCITONIN [CHEM] Routine 01/30/21 11:30 D5 1/2 NS w/ 20 mEq/L KCl 1,000 ml IV ASDIRECTED - Plan Plan:: ASSESSMENT AND PLAN - Ileus/partial small bowel obstruction-CT noted small area of inflammation in the mid abdomen involving the small intestine. Differential included infectious versus inflammatory. Procalcitonin undetectable and white count normal. Could be viral. No personal or family history of inflammatory bowel disease. Clinically improving. -Continue NG tube for now, remove when output is minimal -Symptomatic management of pain and nausea -Flat and upright in the morning -Consider surgical consultation if worsening, no indication currently Hypokalemia-mild, improving with supplementation. -40 mEq IV today Maintenance issues - - DVT prophylaxis -mechanical - GI prophylaxis -PPI - Nutrition -nothing by mouth Disposition -I would anticipate discharge home after the hospital stay Fito Sifuentes M.D.
[2021-01-30] MEDS ORDERED: D5 1/2 NS w/ 20 mEq/L KCl 1,000 ML IV SCH (11:30)
[2021-01-30] MEDS: Potassium Chloride 20 MEQ, Lidocaine 1% 2 ML in Sodium Chloride 0.9% 100 ML IV SCH ×2 (11:44→14:57)
[2021-01-31 07:33] VITALS: PULSE 63
[2021-01-31 11:03] VITALS: BP 150/85
--- NOTE | 2021-01-31 13:18 | PCM.DCSUM1 ---
Discharge Summary - Hospital Course Brief History: Healthy 70-year-old female who presented with acute onset of abdominal pain with nausea and vomiting. She was admitted for management of a partial small bowel obstruction with mild small bowel inflammation in a short segment of the small intestine. Diagnosis: Stroke: No - Discharge Data Discharge Date: 01/31/21 Discharge Disposition: Home, Self-Care 01 Condition: Good - Referral to Home Health Primary Care Physician: PCP None - Discharge Diagnosis/Problem(s) (1) Partial obstruction of small intestine SNOMED Code(s): 074253538 ICD Code: K56.600 - PARTIAL INTESTINAL OBSTRUCTION, UNSPECIFIED TO CAUSE Status: Acute Current Visit: Yes Onset Date: ~01/29/21 - Patient Summary/Data Hospital Course: Becky presented to the emergency room with acute onset of abdominal pain with nausea and vomiting. Work-up in the emergency room revealed normal laboratory studies including a normal white blood cell count and normal CRP. Vital signs were stable and there was no fever. A CT scan of the abdomen and pelvis showed a short segment of small intestine had inflammation in the mid abdomen. This created a partial obstruction/ileus. An NG tube was placed in the emergency room and she was admitted for hydration, symptom management and additional monitoring. By the morning after admission her abdominal pain had resolved. Her NG tube was not producing any liquid. We performed a clamping trial and there was no buildup of fluid during the clamping trial. The NG tube was removed and she was started on clear liquids. She tolerated these well and then was advanced to full liquids. She tolerated these well with no pain or nausea. She feels well enough to go home at this time and I believe she is safe for discharge and outpatient management. The exact cause for the short-lived obstruction is not entirely clear. Laboratory studies were normal. She never had any fevers. She never had diarrhea. Focal viral infection/enteritis versus temporary inflammation seems most likely. Inflammatory bowel disease seems very unlikely. She will seek additional evaluation if she has recurrent symptoms. - Patient Instructions Diet: GI Soft/Low Residue/Low Fiber Activity: As Tolerated Driving: May Drive Today Showering/Bathing: May Shower Notify Provider of: Fever, Increased Pain, Nausea and/or Vomiting Other/Special Instructions: 1. You were in the hospital for management of a partial small bowel obstruction caused by inflammation and a small area of your small intestine. The exact cause for this area of inflammation and partial obstruction is not entirely clear but has resolved quickly without any specific intervention. This may have been due to a localized viral infection or temporary inflammation. I recommend that you maintain a liquid to soft diet for the next several days before slowly reintroducing your normal foods. If you develop a sudden increase in abdominal pain, have nausea or vomiting or if you develop a fever you should seek medical attention. No specific follow-up is necessary as long as you continue to feel better. - Discharge Plan *PRESCRIPTION DRUG MONITORING PROGRAM REVIEWED*: Not Applicable *COPY OF PRESCRIPTION DRUG MONITORING REPORT IN PATIENT HILLARY: Not Applicable Home Medications: Home Meds NK [No Known Home Meds] 05/09/14 [History] Oxygen Therapy Mode: Room Air Patient Handouts: Bowel Obstruction, [id number] Referrals: PCP,None [Primary Care Provider] - (Follow-up as needed if your symptoms do not continue to get better or if they get worse) - Discharge Summary/Plan Comment DC Time >30 min.: No - Patient Data Vitals - Most Recent: Last Vital Signs Temp 36.4 C 01/31/21 11:00 Pulse 63 01/31/21 11:00 Resp 16 01/31/21 11:00 BP 150/85 H 01/31/21 11:00 Pulse Ox 96 01/31/21 11:00 Weight - Most Recent: 54.613 kg I&O - Last 24 hours: Intake & Output 01/30/21 01/31/21 01/31/21 21:59 06:59 14:59 Intake Total 840 Output Total 300 Balance 540 Med Orders - Current: Current Medications Acetaminophen (Acetaminophen 650 Mg Supp) 650 mg RECTAL Q6H PRN PRN Reason: Pain Promethazine HCl 12.5 mg/ (Sodium Chloride) 50.5 mls @ 200 mls/hr IV Q6H PRN PRN Reason: Nausea/Vomiting Iopamidol (Iopamidol 612 Mg/Ml 100 Ml Bottle) 86 ml IV . DIRECTED [facility] Last Admin: 01/29/21 18:55 Dose: 86 ml Documented by: Ketorolac Tromethamine (Ketorolac 30 Mg/Ml Sdv) 30 mg IVPUSH Q6H PRN PRN Reason: Pain (moderate 4-6) Morphine Sulfate (Morphine 2 Mg/Ml Syringe) 2 mg IVPUSH Q2H PRN PRN Reason: Other Ondansetron HCl (Ondansetron 4 Mg/2 Ml Sdv) 4 mg IV Q4H PRN PRN Reason: Nausea/Vomiting Sodium Chloride (Sodium Chloride 0.9% 10 Ml Syringe) 10 ml FLUSH ASDIRECTED PRN PRN Reason: Keep Vein Open Last Admin: 01/29/21 18:01 Dose: 10 ml Documented by: Discontinued Medications Fentanyl (Fentanyl 100 Mcg/2 Ml Sdv) 50 mcg IVPUSH ONETIME ONE Stop: 01/29/21 17:38 Last Admin: 01/29/21 17:59 Dose: 50 mcg Documented by: Sodium Chloride (Normal Saline) 1,000 mls @ 500 mls/hr IV ASDIRECTED [facility] Last Admin: 01/29/21 18:00 Dose: 500 mls/hr Documented by: Sodium Chloride (Normal Saline) 70 mls @ 3.5 mls/sec IV ASDIRECTED [facility] Last Admin: 01/29/21 18:56 Dose: 3 mls/sec Documented by: Potassium Chloride/Dextrose/Sod Cl (D5 1/2 Ns W/ 20 Meq/L Kcl) 1,000 mls @ 125 mls/hr IV ASDIRECTED [facility] Last Admin: 01/30/21 06:25 Dose: 125 mls/hr Documented by: Potassium Chloride 20 meq/Lidocaine HCl 2 ml/ Sodium Chloride 112 mls @ 50 mls/hr IV Q2H [facility] Stop: 01/30/21 13:59 Last Admin: 01/30/21 14:57 Dose: 50 mls/hr Documented by: Potassium Chloride/Dextrose/Sod Cl (D5 1/2 Ns W/ 20 Meq/L Kcl) 1,000 mls @ 75 mls/hr IV ASDIRECTED [facility] Lidocaine HCl (Lidocaine 2% Viscous Solution 15 Ml Cup) 15 ml PO ONETIME ONE Stop: 01/29/21 20:13 Lidocaine HCl (Lidocaine 2% Jelly 10 Ml Urojet) 10 ml MUCMEM ONETIME ONE Stop: 01/29/21 20:14 Last Admin: 01/29/21 20:38 Dose: 10 ml Documented by: Ondansetron HCl (Ondansetron 4 Mg/2 Ml Sdv) 4 mg IVPUSH ONETIME ONE Stop: 01/29/21 17:38 Last Admin: 01/29/21 17:59 Dose: 4 mg Documented by: Sodium Chloride (Sodium Chloride 0.9% 10 Ml Syringe) 10 ml FLUSH ONETIME ONE Stop: 01/29/21 18:30 Last Admin: 01/29/21 18:56 Dose: 10 ml Documented by:
--- NOTE | 2021-02-01 09:34 | CR ---
CHEST: Portable 01/29/2021 at 9:32 PM CLINICAL HISTORY:NG tube placement COMPARISON:None FINDINGS: There is an NG tube. The tip is near the pylorus. The heart size, pulmonary vascularity and hilar structures are normal. No infiltrate effusion or pneumothorax is seen. There are atherosclerotic changes in the aorta.. IMPRESSION: No acute cardiopulmonary process. NG tube in distal stomach Abdomen 2V AP Flat Upright CLINICAL HISTORY: Follow-up obstruction FINDINGS: No free air is identified. There is gas and feces are the colon. There are scattered air-filled bowel loops of small bowel in a nonspecific pattern. There are a few air-fluid levels in the mid abdomen. No stones are seen. IMPRESSION: Nonspecific intestinal gas pattern
== END 2021-01-31 13:54 | disposition home or self-care (01) | DRG 387 ==
LOC: JP.ED 16:48 → JP.MS 21:19
PROVIDERS: ADMIT Family Medicine; ATTEND Internal Medicine
DX: K50.012 Crohn's disease of small intestine with intestinal obstruction (principal); E87.6 Hypokalemia; Z86.010 Personal history of colon polyps; H54.7 Unspecified visual loss; Z88.1 Allergy status to other antibiotic agents; Z88.0 Allergy status to penicillin
CPT/HCPCS: 36415; 43752; 71045; 71045-26; 74019; 74019-26; 74177; 80053; 81001; 83605; 83690; 84145; 84484; 85025; 86140; 94762; 96374; 96375; 99285-25; J2405; J3010; J3480; J7030; Q9967

== ENCOUNTER 2021-06-26 00:53 | Emergency (ER) | payer MEDICARE, BC, OTHER ==
[2021-06-26] MEDS ORDERED: Alum Hydrox/Mag Hydrox/Simeth 15 ML, Lidocaine 2% 15 ML PO ONE ×2 (01:28)
[2021-06-26] MEDS ORDERED: Ondansetron 4 MG/2 ML SDV IVPUSH ONE (01:44)
[2021-06-26] MEDS ORDERED: Sodium Chloride 0.9% 10 ML Syringe FLUSH PRN (01:44)
[2021-06-26] MEDS ORDERED: HYDROmorphone 0.5 MG/0.5 ML Syringe IVPUSH ONE (01:45)
[2021-06-26] MEDS ORDERED: diphenhydrAMINE 50 MG/ML SDV IVPUSH ONE (01:47)
--- NOTE | 2021-06-26 01:54 | EDM.PDOC ---
ED HPI GENERAL MEDICAL PROBLEM - General Chief Complaint: Chest Pain Stated Complaint: UPPER ABD PAIN Time Seen by Provider: 06/26/21 01:40 Source of Information: Reports: Patient, Old Records, RN History Limitations: Reports: No Limitations - History of Present Illness INITIAL COMMENTS - FREE TEXT/NARRATIVE: 71 yo female here with epigastric pain associated with nausea and vomiting that began about 6 hrs before arrival. Had vomited x 2 before arrival and then again after arrival. No hematemesis. Sx's not relieved with eating. No hx of the same. [place] at first like she might just be hungry. No hx of gallstones or pancreas issues. Pain does not radiate. Does have a pHx of a partial SBO. Onset: Gradual Onset Date: 06/25/21 Duration: Hour(s):, Getting Worse Location: Reports: Abdomen Quality: Reports: Ache Severity: Moderate Improves with: Reports: None Worsens with: Reports: Other (time) Context: Reports: Other (See HPI) Associated Symptoms: Reports: Diaphoresis, Nausea/Vomiting. Denies: Fever/Chills Treatments SILK SNAPPER: Reports: Other (see below) (none) epigastric Pain Score (Numeric/FACES): 7 - Related Data Allergies Allergy/AdvReac Type Severity Reaction Status Date / Time doxycycline Allergy Other Verified 06/26/21 01:06 Penicillins Allergy Airway Verified 06/26/21 01:06 Tightness Home Meds: Home Meds NK [No Known Home Meds] 05/09/14 [History] Past Medical History HEENT History: Reports: Impaired Vision Cardiovascular History: Reports: None Respiratory History: Reports: None Gastrointestinal History: Reports: Colon Polyp, Other (See Below) Other Gastrointestinal History: small bowel obstr Genitourinary History: Reports: None 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 , Musculoskeletal History: Reports: None Neurological History: Reports: None Psychiatric History: Reports: None Endocrine/Metabolic History: Reports: None Hematologic History: Reports: None Immunologic History: Reports: None Oncologic (Cancer) History: Reports: None Dermatologic History: Reports: None - Infectious Disease History Infectious Disease History: Reports: Chicken Pox, Measles, Mumps - Past Surgical History HEENT Surgical History: Reports: Oral Surgery GI Surgical History: Reports: Colonoscopy Female Surgical History: Reports: Breast Biopsy Dermatological Surgical History: Reports: None Social & Family History - Family History Family Medical History: No Pertinent Family History - Tobacco Use Tobacco Use Status *Q: Never Tobacco User - Caffeine Use Caffeine Use: Reports: Tea - Recreational Drug Use Recreational Drug Use: No ED ROS GENERAL - Review of Systems Review Of Systems: See Below Constitutional: Reports: No Symptoms HEENT: Reports: No Symptoms Respiratory: Reports: No Symptoms Cardiovascular: Reports: No Symptoms GI/Abdominal: Reports: Abdominal Pain, Nausea, Vomiting. Denies: Black Stool, Constipation, Diarrhea, Distension, Hematemesis, Hematochezia, Melena Skin: Reports: Diaphoresis (at times) Neurological: Reports: No Symptoms ED EXAM, GI/ABD - Physical Exam Exam: See Below Exam Limited By: No Limitations General Appearance: Alert, WD/WN, No Apparent Distress Eyes: Bilateral: Normal Appearance Ears: Normal External Exam, Normal Canal, Hearing Grossly Normal Nose: Normal Inspection, No Blood Throat/Mouth: Normal Inspection, Normal Lips, Normal Oropharynx, Normal Voice, No Airway Compromise Head: Atraumatic, Normocephalic Neck: Normal Inspection Respiratory/Chest: No Respiratory Distress, Lungs Clear, Normal Breath Sounds, No Accessory Muscle Use Cardiovascular: Regular Rate, Rhythm, No Edema GI/Abdominal Exam: Normal Bowel Sounds, Soft, No Distention, Tender (epigastrium), Other (no dullness to percussion). No: Non-Tender, Distended, Guarding, Rigid, Rebound Back Exam: Normal Inspection. No: CVA Tenderness (R), CVA Tenderness (L) Extremities: Normal Inspection, Normal Range of Motion, Non-Tender, No Pedal Edema. No: Pedal Edema Neurological: Alert, Oriented, CN II-XII Intact, Normal Cognition, No Motor/Sensory Deficits Psychiatric: Normal Affect, Normal Mood Skin Exam: Warm, Dry, Intact, Normal Color, No Rash #1 Interpretation EKG Date: 06/26/21 Time: 01:00 Rhythm: NSR Rate (Beats/Min): 75 [place]: LAD-Left [place] Deviation P-Wave: Present QRS: Normal ST-T: Normal QT: Normal Comparison: NA - No Prior EKG Course - Vital Signs Last Recorded V/S: Last Vital Signs Temp 36.7 C 06/26/21 01:09 Pulse 64 06/26/21 03:37 Resp 8 L 06/26/21 03:37 BP 112/63 06/26/21 03:37 Pulse Ox 99 06/26/21 03:37 - Orders/Labs/Meds Orders: Active Orders 24 hr Category Date Time Status Cardiac Monitoring [RC] .As Directed Care 06/26/21 01:03 Active EKG Documentation Completion [RC] ASDIRECTED Care 06/26/21 01:03 Active Lactated Ringers [Ringers, Lactated] 1,000 ml Med 06/26/21 02:48 Active IV BOLUS Sodium Chloride 0.9% [Saline Flush] Med 06/26/21 01:44 Active 10 ml FLUSH ASDIRECTED PRN Saline Lock Insert [OM.PC] Routine Oth 06/26/21 01:44 Ordered EKG 12 Lead [EK] Routine Ther 06/26/21 01:02 Ordered Medication Orders Lactated Ringer's (Ringers, Lactated) 1,000 mls @ 1,000 mls/hr IV BOLUS ONE Stop: 06/26/21 03:47 Last Admin: 06/26/21 03:04 Dose: 1,000 mls/hr Documented by: TAMERA Sodium Chloride (Sodium Chloride 0.9% 10 Ml Syringe) 10 ml FLUSH ASDIRECTED PRN PRN Reason: Keep Vein Open Last Admin: 06/26/21 02:02 Dose: 10 ml Documented by: TAMERA Labs: Laboratory Tests 06/26/21 06/26/21 Range/Units 01:56 01:56 WBC 11.2 H (4.5-11.0) K/uL RBC 4.50 (3.30-5.50) M/uL Hgb 13.9 (12.0-15.0) g/dL Hct 41.8 (36.0-48.0) % MCV 93 (80-98) fL MCH 31 (27-31) pg MCHC 33 (32-36) % Plt Count 240 (150-400) K/uL Sodium 140 (140-148) mmol/L Potassium 4.5 (3.6-5.2) mmol/L Chloride 99 L (100-108) mmol/L Carbon Dioxide 33 H (21-32) mmol/L Anion Gap 12.5 (5.0-14.0) mmol/L BUN 21 H (7-18) mg/dL Creatinine 0.6 (0.6-1.0) mg/dL Est Cr Clr Drug Dosing 65.84 mL/min Estimated GFR (MDRD) > 60 (>60) Glucose 140 H (74-106) mg/dL Calcium 9.1 (8.5-10.1) mg/dL Total Bilirubin 0.6 D (0.2-1.0) mg/dL AST 29 (15-37) U/L ALT 18 (12-78) U/L Alkaline Phosphatase 73 (46-116) U/L Troponin I < 0.017 (0.000-0.056) ng/mL Total Protein 7.1 (6.4-8.2) g/dL Albumin 3.6 (3.4-5.0) g/dL Globulin 3.5 (2.3-3.5) g/dL Albumin/Globulin Ratio 1.0 L (1.2-2.2) Lipase 134 (73-393) U/L Meds: Medications Generic Name Dose Route Start Last Admin Trade Name Freq PRN Reason Stop Dose Admin Lactated Ringer's 1,000 mls @ 1,000 mls/hr 06/26/21 02:48 06/26/21 03:04 Ringers, Lactated IV 06/26/21 03:47 1,000 mls/hr BOLUS ONE Administration Sodium Chloride 10 ml 06/26/21 01:44 06/26/21 02:02 Sodium Chloride 0.9% 10 Ml Syringe FLUSH 10 ml ASDIRECTED PRN Administration Keep Vein Open Discontinued Medications Generic Name Dose Route Start Last Admin Trade Name Freq PRN Reason Stop Dose Admin Al Hydroxide/Mg Hydroxide 15 0 ml 06/26/21 01:28 06/26/21 01:35 ml/ Lidocaine HCl 15 ml PO 06/26/21 01:29 30 ml ONETIME ONE Administration Diphenhydramine HCl 25 mg 06/26/21 01:47 06/26/21 02:03 Diphenhydramine 50 Mg/Ml Sdv IVPUSH 06/26/21 01:48 25 mg ONETIME ONE Administration Famotidine 20 mg 06/26/21 02:50 06/26/21 03:03 Famotidine 20 Mg/2 Ml Sdv IVPUSH 06/26/21 02:51 20 mg ONETIME ONE Administration Hydromorphone HCl 0.5 mg 06/26/21 01:45 06/26/21 02:06 Hydromorphone 0.5 Mg/0.5 Ml Syringe IVPUSH 06/26/21 01:46 0.5 mg ONETIME ONE Administration Ondansetron HCl 4 mg 06/26/21 01:44 06/26/21 02:00 Ondansetron 4 Mg/2 Ml Sdv IVPUSH 06/26/21 01:45 4 mg ONETIME ONE Administration Sucralfate 1 gm 06/26/21 02:49 06/26/21 03:03 Sucralfate 1 Gm Tab PO 06/26/21 02:50 1 gm ONETIME ONE Administration - Re-Assessments/Exams Free Text/Narrative Re-Assessment/Exam: 06/26/21 01:56 slight relief with GI cocktail. Free Text/Narrative Re-Assessment/Exam: 06/26/21 03:42 asymptomatic since shortly after arrival Departure - Departure Time of Disposition: 04:00 Disposition: Home, Self-Care 01 Condition: Fair Clinical Impression: Gastritis Qualifiers: Gastritis type: other gastritis Chronicity: acute Gastritis bleeding: without bleeding Qualified Code(s): K29.00 - Acute gastritis without bleeding Nausea and vomiting Qualifiers: Vomiting type: unspecified Vomiting Intractability: non-intractable Qualified Code(s): R11.2 - Nausea with vomiting, unspecified - Discharge Information *PRESCRIPTION DRUG MONITORING PROGRAM REVIEWED*: Not Applicable *COPY OF PRESCRIPTION DRUG MONITORING REPORT IN PATIENT [facility]: Not Applicable Instructions: Gastritis, Adult, [id number], Nausea and Vomiting, Adult, [id number] Referrals: PCP,None [Primary Care Provider] - Forms: ED Department Discharge Additional Instructions: Take Carafate 1 gm 30 min before meals and at bedtime. Take Zofran as needed for nausea control. Use acetaminophen for pain relief. Avoid: ibuprofen, Aleve, aspirin, carbonated beverages, caffeine, tobacco or alcohol. Clear liquid diet only for 12 hrs, then slowly advance diet as tolerated. Recheck in the next week, return if worse. Sepsis Event Note (ED) - Evaluation Sepsis Screening Result: No Definite Risk - Focused Exam Vital Signs: Vital Signs Temp Pulse Resp BP Pulse Ox 06/26/21 03:37 64 8 L 112/63 99 06/26/21 01:36 68 106/66 06/26/21 01:09 36.7 C 87 18 139/62 97 06/26/21 01:00 36.7 C 87 18 139/62 97 - My Orders Last 24 Hours: My Active Orders 06/26/21 01:02 EKG 12 Lead [EK] Routine 06/26/21 01:03 Cardiac Monitoring [RC] .As Directed EKG Documentation Completion [RC] ASDIRECTED 06/26/21 01:44 Sodium Chloride 0.9% [Saline Flush] 10 ml FLUSH ASDIRECTED PRN Saline Lock Insert [OM.PC] Routine 06/26/21 02:48 Lactated Ringers [Ringers, Lactated] 1,000 ml IV BOLUS - Assessment/Plan Last 24 Hours: My Active Orders 06/26/21 01:02 EKG 12 Lead [EK] Routine 06/26/21 01:03 Cardiac Monitoring [RC] .As Directed EKG Documentation Completion [RC] ASDIRECTED 06/26/21 01:44 Sodium Chloride 0.9% [Saline Flush] 10 ml FLUSH ASDIRECTED PRN Saline Lock Insert [OM.PC] Routine 06/26/21 02:48 Lactated Ringers [Ringers, Lactated] 1,000 ml IV BOLUS
[2021-06-26] MEDS ORDERED: Lactated Ringers 1,000 ML IV ONE (02:48)
[2021-06-26] MEDS ORDERED: Sucralfate 1 GM Tab PO ONE (02:49)
[2021-06-26] MEDS ORDERED: Famotidine 20 MG/2 ML SDV IVPUSH ONE (02:50)
[2021-06-26 03:39] VITALS: BP 112/63; PULSE 64
== END 2021-06-26 04:18 | disposition home or self-care (01) ==
LOC: JP.ED 00:53
DX: K29.00 Acute gastritis without bleeding (principal); Z88.0 Allergy status to penicillin; Z88.1 Allergy status to other antibiotic agents
CPT/HCPCS: 36415; 80053; 83690; 84484; 85027; 93005; 96374; 96375; 99284; A9270; J1170; J1200; J2405; J3490; J7120

== ENCOUNTER 2022-09-06 23:54 | Emergency (ER) | payer MEDICARE, BC, OTHER ==
[2022-09-07 00:17] VITALS: BP 143/75; PULSE 84
[2022-09-07] MEDS ORDERED: Cyclobenzaprine 10 MG Tab PO ONE (00:48)
== END 2022-09-07 02:11 | disposition home or self-care (01) ==
LOC: JP.ED 23:54
DX: M62.838 Other muscle spasm (principal); Z88.0 Allergy status to penicillin; Z88.1 Allergy status to other antibiotic agents
CPT/HCPCS: 36415; 85025; 86140; 93971; 99284; A9270

== ENCOUNTER 2024-07-30 15:37 | Observation (INO) | payer MEDICARE, BC, OTHER ==
[2024-07-30 16:34] LABS: BASOPHILS PERCENT AUTO 0.1 % (0.1-1.3); EOSINOPHILS PERCENT AUTO 0.1 % (0.0-5.4); HEMATOCRIT 36.6 % (34.3-46.0); HEMOGLOBIN 12.7 g/dL (11.2-15.5); IMMATURE GRAN PERCENT AUTO 0.3 % (0.0-0.7); LYMPHOCYTES ABSOLUTE AUTO 0.69 K/uL (0.8-3.3); LYMPHOCYTES PERCENT AUTO 9.7 % (11.4-47.7); MEAN CORPUSCULAR HEMOGLOBIN 32.2 pg (31.6-35.5); MEAN CORPUSCULAR HGB CONC 34.7 g/dL (31.6-35.5); MEAN CORPUSCULAR VOLUME 92.9 fL (81.4-99.0); MONOCYTES ABSOLUTE AUTO 0.24 K/uL (0.20-0.90); MONOCYTES PERCENT AUTO 3.4 % (3.3-12.6); NEUTROPHILS ABSOLUTE AUTO 6.12 K/uL (1.0-7.6); NEUTROPHILS PERCENT AUTO 86.4 % (40.0-78.1); PLATELET COUNT,PLT 224 K/uL (130-375); RED BLOOD CELL COUNT 3.94 M/uL (3.77-5.24); WHITE BLOOD CELL COUNT,WBC 7.1 K/uL (3.2-11.0)
[2024-07-30 16:35] LABS: BASOPHILS ABSOLUTE AUTO 0.01 K/uL (0.00-0.10); EOSINOPHILS ABSOLUTE AUTO 0.01 K/uL (0.00-0.40); IMMATURE GRAN ABSOLUTE AUTO 0.02 K/uL (0.00-0.23)
[2024-07-30 16:58] LABS: CREATININE 0.7 mg/dL (0.6-1.0); EST CRCL DRUG DOSING (CG) 51.41 mL/min; POTASSIUM,K 4.2 mmol/L (3.6-5.2)
[2024-07-30 16:59] LABS: ANION GAP 10.2 mmol/L (5.0-14.0)
[2024-07-30] MEDS: Sodium Chloride 0.9% 80 ML IV SCH (17:00)
[2024-07-30] MEDS: Iopamidol 612 MG/ML 100 ML Bottle IV PRN (17:00)
[2024-07-30] MEDS: Sodium Chloride 0.9% 10 ML Syringe FLUSH PRN (17:00)
[2024-07-30] MEDS ORDERED: Indocyanine Green 25 MG SDV ONE (18:10)
[2024-07-30] MEDS: metroNIDAZOLE/Normal Saline 500 MG in Premix Bag 1 BAG IV ONE (18:28)
[2024-07-30] MEDS ORDERED: Rocuronium 50 MG/5 ML Vial ONE (18:31)
[2024-07-30] MEDS ORDERED: Propofol 200 MG/20 ML SDV ONE (18:31)
[2024-07-30] MEDS ORDERED: Dexamethasone 4 MG/ML SDV ONE (18:31)
[2024-07-30] MEDS ORDERED: Glycopyrrolate 0.2 MG/ML 5 ML MDV ONE (18:31)
[2024-07-30] MEDS ORDERED: Ondansetron 4 MG/2 ML SDV ONE (18:31)
[2024-07-30] MEDS ORDERED: Neostigmine Methylsulfate 10 MG/10 ML MDV ONE (18:31)
[2024-07-30] MEDS ORDERED: fentaNYL 250 MCG/5 ML SDV ONE (18:32)
[2024-07-30] MEDS: ceFAZolin 2 GM in Sodium Chloride 0.9% 50 ML IV ONE (19:00)
[2024-07-30] MEDS: Lidocaine 1% with EPINEPHrine 1:100,000 50 ML MDV ONE (19:38)
[2024-07-30] MEDS: Bupivacaine 0.5% 50 ML MDV ONE (19:38)
[2024-07-30] MEDS: Indocyanine Green 25 MG SDV IV ONE (19:50)
[2024-07-30] MEDS ORDERED: Lactated Ringers 1,000 ML ONE (19:57)
[2024-07-30] MEDS ORDERED: Bisacodyl 5 MG Tab PO PRN (20:14)
[2024-07-30] MEDS ORDERED: fentaNYL 100 MCG/2 ML SDV IVPUSH PRN (20:14)
[2024-07-30] MEDS ORDERED: Benzocaine/Cetylpyridinium/Menthol Lozenge MUCMEM PRN (20:14)
[2024-07-30] MEDS ORDERED: Sennosides/Docusate Sodium 50-8.6 MG Tab PO PRN (20:14)
[2024-07-30] MEDS ORDERED: Zolpidem 5 MG Tab PO PRN (20:14)
[2024-07-30] MEDS ORDERED: diphenhydrAMINE 50 MG/ML SDV IVPUSH PRN (20:14)
[2024-07-30] MEDS ORDERED: Polyethylene Glycol 3350 Powder 17 GM Packet PO PRN (20:14)
[2024-07-30] MEDS ORDERED: Acetaminophen 325 MG Tab PO PRN (20:14)
[2024-07-30] MEDS ORDERED: Acetaminophen/HYDROcodone 325-5 MG Tab PO PRN (20:14)
[2024-07-30] MEDS ORDERED: Sugammadex Sodium 200 MG/2 ML VIAL IV ONE (20:17)
[2024-07-30] MEDS: Sodium Chloride 0.9% 1,000 ML IV SCH (21:34)
[2024-07-31 05:54] LABS: HEMATOCRIT 32.2 % (34.3-46.0); HEMOGLOBIN 11.4 g/dL (11.2-15.5); IMMATURE GRAN ABSOLUTE AUTO 0.05 K/uL (0.00-0.23); IMMATURE GRAN PERCENT AUTO 0.5 % (0.0-0.7); LYMPHOCYTES ABSOLUTE AUTO 0.35 K/uL (0.8-3.3); LYMPHOCYTES PERCENT AUTO 3.7 % (11.4-47.7); MEAN CORPUSCULAR HEMOGLOBIN 32.9 pg (31.6-35.5); MEAN CORPUSCULAR HGB CONC 35.4 g/dL (31.6-35.5); MEAN CORPUSCULAR VOLUME 93.1 fL (81.4-99.0); MONOCYTES ABSOLUTE AUTO 0.12 K/uL (0.20-0.90); MONOCYTES PERCENT AUTO 1.3 % (3.3-12.6); NEUTROPHILS ABSOLUTE AUTO 8.99 K/uL (1.0-7.6); NEUTROPHILS PERCENT AUTO 94.5 % (40.0-78.1); PLATELET COUNT,PLT 192 K/uL (130-375); RED BLOOD CELL COUNT 3.46 M/uL (3.77-5.24); WHITE BLOOD CELL COUNT,WBC 9.5 K/uL (3.2-11.0)
[2024-07-31 06:11] LABS: CALCIUM 8.2 mg/dL (8.5-10.1); CREATININE 0.7 mg/dL (0.6-1.0); EST CRCL DRUG DOSING (CG) 51.41 mL/min; POTASSIUM,K 3.4 mmol/L (3.6-5.2)
[2024-07-31 06:18] LABS: ANION GAP 12.4 mmol/L (5.0-14.0)
[2024-07-31] MEDS: Potassium Chloride 10 MEQ in Premix Bag 1 BAG IV SCH (08:55)
[2024-07-31] MEDS: Docusate Sodium 100 MG Cap PO PRN (13:46)
[2024-08-01 08:17] LABS: BASOPHILS PERCENT AUTO 0.3 % (0.1-1.3); EOSINOPHILS PERCENT AUTO 0.3 % (0.0-5.4); HEMOGLOBIN 11.2 g/dL (11.2-15.5); IMMATURE GRAN ABSOLUTE AUTO 0.04 K/uL (0.00-0.23); IMMATURE GRAN PERCENT AUTO 0.6 % (0.0-0.7); LYMPHOCYTES ABSOLUTE AUTO 1.56 K/uL (0.8-3.3); LYMPHOCYTES PERCENT AUTO 21.7 % (11.4-47.7); MEAN CORPUSCULAR HEMOGLOBIN 32.4 pg (31.6-35.5); MEAN CORPUSCULAR HGB CONC 33.9 g/dL (31.6-35.5); MEAN CORPUSCULAR VOLUME 95.4 fL (81.4-99.0); MONOCYTES ABSOLUTE AUTO 0.45 K/uL (0.20-0.90); MONOCYTES PERCENT AUTO 6.3 % (3.3-12.6); NEUTROPHILS ABSOLUTE AUTO 5.09 K/uL (1.0-7.6); NEUTROPHILS PERCENT AUTO 70.8 % (40.0-78.1); PLATELET COUNT,PLT 179 K/uL (130-375); RED BLOOD CELL COUNT 3.46 M/uL (3.77-5.24); WHITE BLOOD CELL COUNT,WBC 7.2 K/uL (3.2-11.0)
[2024-08-01 08:25] LABS: BASOPHILS ABSOLUTE AUTO 0.02 K/uL (0.00-0.10); EOSINOPHILS ABSOLUTE AUTO 0.02 K/uL (0.00-0.40)
[2024-08-01 08:34] LABS: ALANINE AMINOTRANSFERASE,ALT 14 U/L (12-78); ALBUMIN 2.9 g/dL (3.4-5.0); ALKALINE PHOSPHATASE 52 U/L (46-116); ASPARTATE AMNIOTRANSFERASE,AST 22 U/L (15-37); BILIRUBIN TOTAL 0.6 mg/dL (0.2-1.0); BLOOD UREA NITROGEN,BUN 9 mg/dL (7-18); CALCIUM 8.5 mg/dL (8.5-10.1); CARBON DIOXIDE,CO2 30 mmol/L (21-32); CHLORIDE,CL 111 mmol/L (100-108); CREATININE 0.7 mg/dL (0.6-1.0); EST CRCL DRUG DOSING (CG) 51.41 mL/min; ESTIMATED GFR 91 mL/min (>60); GLUCOSE RANDOM 108 mg/dL (74-106); POTASSIUM,K 3.3 mmol/L (3.6-5.2); PROTEIN TOTAL,TP 5.9 g/dL (6.4-8.2); SODIUM,NA 145 mmol/L (140-148)
[2024-08-01 08:37] LABS: ANION GAP 7.3 mmol/L (5.0-14.0)
[2024-08-01 15:38] VITALS: BP 132/78; PULSE 77
== END 2024-08-01 15:58 | disposition home or self-care (01) ==
LOC: JP.ED 15:37 → JP.SDS 18:04 → JP.MS 20:15
PROVIDERS: ADMIT Surgery; ATTEND Surgery
DX: K40.30 Unilateral inguinal hernia, with obstruction, without gangrene, not specified as recurrent (principal); E87.6 Hypokalemia; I48.91 Unspecified atrial fibrillation; Z88.1 Allergy status to other antibiotic agents; Z88.0 Allergy status to penicillin
CPT/HCPCS: 00840; 36415; 44602; 49650; 74177; 80048; 80053; 83605; 84484; 85025; 87070; 87075; 87205; 93010; 96365; 96375; 99231; 99285; A9270; C1781; G0378; J0171; J0665; J0690; J1100; J1596; J1836; J2405; J2704; J2710; J2795; J3010; J3490; J7030; J7120; Q9967; 99238; J3480

== ENCOUNTER 2024-09-28 16:43 | Emergency (ER) | payer MEDICARE, BC, OTHER ==
[2024-09-28 16:57] VITALS: BP 137/56; PULSE 67
[2024-09-28 17:48] LABS: BASOPHILS PERCENT AUTO 0.4 % (0.1-1.3); EOSINOPHILS ABSOLUTE AUTO 0.04 K/uL (0.00-0.40); EOSINOPHILS PERCENT AUTO 0.7 % (0.0-5.4); HEMATOCRIT 37.2 % (34.3-46.0); HEMOGLOBIN 12.8 g/dL (11.2-15.5); IMMATURE GRAN PERCENT AUTO 0.2 % (0.0-0.7); LYMPHOCYTES ABSOLUTE AUTO 0.99 K/uL (0.8-3.3); MEAN CORPUSCULAR HEMOGLOBIN 32.5 pg (31.6-35.5); MEAN CORPUSCULAR HGB CONC 34.4 g/dL (31.6-35.5); MEAN CORPUSCULAR VOLUME 94.4 fL (81.4-99.0); MONOCYTES ABSOLUTE AUTO 0.46 K/uL (0.20-0.90); MONOCYTES PERCENT AUTO 8.4 % (3.3-12.6); NEUTROPHILS ABSOLUTE AUTO 3.98 K/uL (1.0-7.6); NEUTROPHILS PERCENT AUTO 72.3 % (40.0-78.1); PLATELET COUNT,PLT 197 K/uL (130-375); RED BLOOD CELL COUNT 3.94 M/uL (3.77-5.24); WHITE BLOOD CELL COUNT,WBC 5.5 K/uL (3.2-11.0)
[2024-09-28 17:53] LABS: BASOPHILS ABSOLUTE AUTO 0.02 K/uL (0.00-0.10); IMMATURE GRAN ABSOLUTE AUTO 0.01 K/uL (0.00-0.23)
[2024-09-28] MEDS: Ketorolac 30 MG/ML SDV IM ONE (18:07)
[2024-09-28 18:09] LABS: A/G RATIO 1.3 (1.2-2.2); ALANINE AMINOTRANSFERASE,ALT 26 U/L (12-78); ALBUMIN 3.9 g/dL (3.4-5.0); ALKALINE PHOSPHATASE 75 U/L (46-116); ASPARTATE AMNIOTRANSFERASE,AST 18 U/L (15-37); BILIRUBIN TOTAL 0.4 mg/dL (0.2-1.0); BLOOD UREA NITROGEN,BUN 16 mg/dL (7-18); CALCIUM 9.3 mg/dL (8.5-10.1); CARBON DIOXIDE,CO2 32 mmol/L (21-32); CHLORIDE,CL 101 mmol/L (100-108); CREATININE 0.7 mg/dL (0.6-1.0); EST CRCL DRUG DOSING (CG) 51.41 mL/min; ESTIMATED GFR 91 mL/min (>60); GLUCOSE RANDOM 132 mg/dL (74-106); POTASSIUM,K 3.4 mmol/L (3.6-5.2); SODIUM,NA 139 mmol/L (140-148)
[2024-09-28 18:10] LABS: ANION GAP 9.4 mmol/L (5.0-14.0); C-REACTIVE PROTEIN < 0.50 mg/dL (<0.50)
[2024-09-28 18:22] LABS: APPEARANCE,URINE SLIGHTLY CLOUDY (CLEAR); BILIRUBIN,URINE NEGATIVE (NEGATIVE); COLOR,URINE YELLOW (YELLOW); GLUCOSE,URINE NEGATIVE (NEGATIVE); KETONES,URINE NEGATIVE (NEGATIVE); LEUKOCYTE ESTERASE,URINE SMALL (NEGATIVE); NITRITE,URINE NEGATIVE (NEGATIVE); OCCULT BLOOD,URINE NEGATIVE (NEGATIVE); PROTEIN,URINE NEGATIVE (NEGATIVE); UROBILINOGEN,URINE 0.2 EU/dL (0.2-1.0)
[2024-09-28 18:30] LABS: AMORPHOUS SEDIMENT,URINE NOT SEEN; BACTERIA,URINE FEW; EPITHELIAL CELLS,URINE RARE; MUCUS,URINE RARE; RBC,URINE 0-5 (0-5); WBC,URINE 0-5 (0-5)
== END 2024-09-28 18:48 | disposition home or self-care (01) ==
LOC: JP.ED 16:43
DX: R10.11 Right upper quadrant pain (principal); M79.10 Myalgia, unspecified site; I48.91 Unspecified atrial fibrillation; Z86.16 Personal history of COVID-19; Z88.1 Allergy status to other antibiotic agents; Z88.0 Allergy status to penicillin; Z88.9 Allergy status to unspecified drugs, medicaments and biological substances
CPT/HCPCS: 36415; 80053; 81001; 83605; 85025; 86140; 96372; 99284; J1885

== ENCOUNTER 2025-03-13 07:12 | Day surgery (SDC) | payer MEDICARE, BC, OTHER ==
[2025-03-13] MEDS ORDERED: fentaNYL 50 MCG/ML SDV ONE (07:17)
[2025-03-13] MEDS ORDERED: Propofol 200 MG/20 ML SDV ONE (07:17)
[2025-03-13] MEDS: Lactated Ringers 1,000 ML IV SCH (10:02)
[2025-03-13 10:03] VITALS: BP 126/82; PULSE 71
== END 2025-03-13 10:16 | disposition home or self-care (01) ==
LOC: JP.SDS 09:18
PROVIDERS: ATTEND Surgery
DX: Z12.11 Encounter for screening for malignant neoplasm of colon (principal); D12.8 Benign neoplasm of rectum
CPT/HCPCS: 00812; 45380; 88305; J2704; J3010; J7120

== ENCOUNTER 2025-04-17 14:34 | Emergency (ER) | payer MEDICARE, BC, OTHER ==
[2025-04-17] MEDS: HYDROmorphone 0.5 MG/0.5 ML Syringe IVPUSH ONE (16:58)
[2025-04-17] MEDS: Sodium Chloride 0.9% 10 ML Syringe FLUSH PRN (16:58)
[2025-04-17 17:02] LABS: BASOPHILS ABSOLUTE AUTO 0.03 K/uL (0.00-0.10); BASOPHILS PERCENT AUTO 0.5 % (0.1-1.3); EOSINOPHILS ABSOLUTE AUTO 0.07 K/uL (0.00-0.40); EOSINOPHILS PERCENT AUTO 1.3 % (0.0-5.4); HEMATOCRIT 38.7 % (34.3-46.0); HEMOGLOBIN 12.8 g/dL (11.2-15.5); IMMATURE GRAN PERCENT AUTO 0.2 % (0.0-0.7); LYMPHOCYTES ABSOLUTE AUTO 1.14 K/uL (0.8-3.3); LYMPHOCYTES PERCENT AUTO 20.5 % (11.4-47.7); MEAN CORPUSCULAR HEMOGLOBIN 32.2 pg (31.6-35.5); MEAN CORPUSCULAR HGB CONC 33.1 g/dL (31.6-35.5); MEAN CORPUSCULAR VOLUME 97.5 fL (81.4-99.0); MONOCYTES ABSOLUTE AUTO 0.49 K/uL (0.20-0.90); MONOCYTES PERCENT AUTO 8.8 % (3.3-12.6); NEUTROPHILS ABSOLUTE AUTO 3.83 K/uL (1.0-7.6); NEUTROPHILS PERCENT AUTO 68.7 % (40.0-78.1); PLATELET COUNT,PLT 182 K/uL (130-375); RED BLOOD CELL COUNT 3.97 M/uL (3.77-5.24); WHITE BLOOD CELL COUNT,WBC 5.6 K/uL (3.2-11.0)
[2025-04-17 17:03] LABS: IMMATURE GRAN ABSOLUTE AUTO 0.01 K/uL (0.00-0.23)
[2025-04-17 17:24] LABS: A/G RATIO 1.1 (1.2-2.2); ALANINE AMINOTRANSFERASE,ALT 18 U/L (12-78); ALBUMIN 3.6 g/dL (3.4-5.0); ALKALINE PHOSPHATASE 67 U/L (46-116); ASPARTATE AMNIOTRANSFERASE,AST 17 U/L (15-37); BILIRUBIN TOTAL 0.6 mg/dL (0.2-1.0); BLOOD UREA NITROGEN,BUN 17 mg/dL (7-18); CALCIUM 9.2 mg/dL (8.5-10.1); CARBON DIOXIDE,CO2 29 mmol/L (21-32); CHLORIDE,CL 104 mmol/L (100-108); CREATININE 0.5 mg/dL (0.6-1.0); EST CRCL DRUG DOSING (CG) 71.98 mL/min; ESTIMATED GFR 99 mL/min (>60); GLUCOSE RANDOM 102 mg/dL (74-106); POTASSIUM,K 3.2 mmol/L (3.6-5.2); PROTEIN TOTAL,TP 6.8 g/dL (6.4-8.2); SODIUM,NA 141 mmol/L (140-148)
[2025-04-17 17:25] LABS: ANION GAP 11.2 mmol/L (5.0-14.0); C-REACTIVE PROTEIN < 0.50 mg/dL (<0.50)
[2025-04-17 17:27] LABS: LACTIC ACID 0.8 mmol/L (0.4-2.0)
[2025-04-17] MEDS: Sodium Chloride 0.9% 100 ML IV ONE (17:45)
[2025-04-17] MEDS: Iopamidol 612 MG/ML 100 ML Bottle IV ONE (17:45)
[2025-04-17] MEDS: Sodium Chloride 0.9% 10 ML Syringe FLUSH ONE (17:46)
[2025-04-17 19:22] VITALS: PULSE 48
[2025-04-17 19:32] VITALS: BP 126/54
== END 2025-04-17 19:54 | disposition home or self-care (01) ==
LOC: JP.ED 14:34
DX: K40.20 Bilateral inguinal hernia, without obstruction or gangrene, not specified as recurrent (principal); E78.00 Pure hypercholesterolemia, unspecified; Z88.0 Allergy status to penicillin; Z88.1 Allergy status to other antibiotic agents; Z88.8 Allergy status to other drugs, medicaments and biological substances; Z79.899 Other long term (current) drug therapy
CPT/HCPCS: 36415; 74177; 80053; 83605; 83690; 85025; 86140; 93005; 96374; 99284; Q9967